=== PATIENT | male | born 1980 | race African-American/Black ===

== ENCOUNTER 2022-08-20 15:08 | Inpatient (IN) ==
[2022-08-20] MEDS ORDERED: ASPIRIN CHEW 324 MG ONE (16:02)
[2022-08-20] MEDS ORDERED: MoRPHine SULFATE 2 MG/ML CARP IV STA (16:08)
[2022-08-20] MEDS ORDERED: ONDANSETRON INJ 2 MG/ML 2 ML VIAL ONE (16:09)
[2022-08-20 16:14] LABS: Base Excess VBG 5.4 mEq/L; HCO3 VBG 30 mmol/L; Oxygen Saturation VBG 90.7 %; PCO2 VBG 42 mmHg (38-50); PO2 VBG 60 mmHg; pH VBG 7.46 (7.36-7.41)
[2022-08-20 16:20] LABS: iSTAT Creatinine 0.8 mg/dl (0.6-1.3); iSTAT Hemoglobin 14.6 g/dl (14.0-18.0); iSTAT Ionized Calcium 1.08 mmol/l (1.12-1.32); iSTAT Potassium 4.1 mmol/L (3.3-5.0)
[2022-08-20] MEDS ORDERED: HEPARIN (PORCINE) 1000 UNIT/ML 10 ML (CATH LAB USE ONLY) ONE (16:21)
[2022-08-20] MEDS ORDERED: MIDAZOLAM HCL 1 MG/ML 2ML VIAL ONE (16:21)
[2022-08-20] MEDS ORDERED: niCARdipine HCL INJ 2.5 MG/ML 10 ML AMP ONE (16:21)
[2022-08-20] MEDS ORDERED: fentaNYL citrate PF 100 MCG/2 ML VIAL ONE (16:22)
[2022-08-20] MEDS ORDERED: NITROGLYCERIN/D5W 100MCG/ML 20ML SYR ONE (16:23)
[2022-08-20 16:28] LABS: Basophils # (auto) 0.03 K/uL (0-0.2); Basophils % (auto) 0.3 %; Eosinophils # (auto) 0.06 K/uL (0-0.50); Eosinophils % (auto) 0.6 %; Hematocrit (blood only) 40.2 % (42.0-52.0); Hemoglobin 13.6 g/dl (14.0-18.0); Immature Granulocytes # (auto) 0.03 K/uL (0.01-0.20); Immature Granulocytes % (auto) 0.3 %; Lymphocytes # (auto) 1.88 K/uL (1.2-3.4); Mean Corpuscular Hemoglobin 28.6 pg (25.0-34.0); Mean Corpuscular Hgb Conc 33.8 g/dL (32.0-36.0); Mean Corpuscular Volume 84.6 fL (80.0-100.0); Mean Platelet Volume 11.4 fL (9.4-12.4); Monocytes # (auto) 0.86 K/uL (0.11-0.59); Monocytes % (auto) 8.7 %; Neutrophils # (auto) 7.03 K/uL (1.40-6.50); Neutrophils % (auto) 71.1 %; Platelet Count 218 K/uL (130-400); RDW Coefficient of Variation 13.9 % (11.5-14.5); RDW Standard Deviation 43.1 fL (36.4-46.3); Red Blood Count 4.75 M/uL (4.70-6.10); White Blood Count 9.89 K/ul (4.8-10.8)
--- NOTE | 2022-08-20 16:35 | XRay Report ---
SINGLE VIEW CHEST CLINICAL HISTORY: Atypical chest pain. Dyspnea FINDINGS: An AP, portable, upright chest radiograph is compared to chest x-ray and chest CT dated 08/19. The examination is degraded by portable technique and patient rotation. The patient is status post midline sternotomy. The heart is enlarged. There is prominence of the pulmonary vasculature. The re is elevation of the right hemidiaphragm bibasilar atelectasis. No large pleural effusion or pneumo thorax is seen. The skeletal structures appear osteopenic. The bony thorax is grossly intact. There i s scoliosis of the spine. IMPRESSION: 1. Cardiomegaly with prominence of the pulmonary vasculature. Correlate clinically for evidence of mi ld fluid overload/congestive change. 2. No airspace consolidation or large pleural effusion is identified. ACT 112: Negative or not required by law. Electronically signed by: Adelfo Knowles M.D. 08/20/2022 4:33 PM
[2022-08-20 16:36] LABS: Albumin Globulin Ratio 1.7 (0.9-2); Albumin Level 4.4 gm/dl (3.4-5.0); BUN Creatinine Ratio 12.4 (10-20); Bilirubin,Total 0.5 mg/dl (0.2-1.0); Calcium 9.4 mg/dl (8.6-10.3); Creatinine Clr Calc Pharmacy 162.1 ml/min; Est GFR (African American) 122.2 ml/min; Est GFR (Non-African American) 105.5 ml/min; Globulin 2.6 gm/dl (2.5-4.0); Magnesium 1.8 mg/dl (1.7-2.4); Potassium 4.1 mmol/L (3.5-5.1)
[2022-08-20 16:42] LABS: Troponin I High Sensitivity 4.2 pg/ml (0-20)
[2022-08-20 16:51] LABS: INR 1.3 (0.9-1.1); Partial Thromboplastin Ratio 1.1; Prothrombin Time 14.3 Seconds (9.0-12.0)
[2022-08-20] MEDS ORDERED: KETOROLAC TROMETHAMINE 15 MG/ML VIAL IV STA (16:54)
--- NOTE | 2022-08-20 17:22 | Cardiology Consultation ---
Date of Consultation August 20, 2022 Assessment & Plan (1) Chest pain: 2. Acute pericarditis 3. Small pericardial effusion without tamponade 4. Post ascending aortic aneurysm repair/mechanical mitral valve replacement Heart alert activated due to concern for possible acute WA. ECG on my review most consistent with pericarditis. In addition previously had normal cath 6 months ago, HS TropI remains negative despite more than a day of symptoms and bedside echocardiogram shows normal wall motion with small pericardial effusion. No echocardiographic/clinical signs of tamponade. Discussed with Dr. Eugene in ED. No need for cardiac catheterization at this time. Plan to treat for acute pericarditis. Recommend admission to telemetry. Check ESR/CRP, trend troponin, formal echocardiogram in the a.m. Start high-dose NSAIDs as well as colchicine 0.6 mg twice daily. On long-term warfarin. Start PPI. Dr. Connors's team to resume care tomorrow. History of Present Illness History of Present Illness Mr. Hollins is a very pleasant 41-year-old man seen emergently in the ED due to concern for possible WA. Patient follows with [facility] cardiology, Dr. Connors. He has a history of suspected Marfan's complicated by ascending aortic aneurysm post aortic root/ascending aorta replacement (27 mm On-X conduit) and mechanical aortic valve 03/19/2022. Other history markable for symptomatic PACs, history of DVT GERD and type 2 diabetes. Prevalve replacement cardiac cath showed normal coronary arteries. Patient states that for the last 3 days or so has noticed increased shortness of breath and positional, pleuritic left-sided chest pain. Presented to ED at 1 AM 08/19/2022 with chest symptoms. ECG unremarkable, HS TropI negative. Underwent chest CTA which was negative for PE, no evidence of aortic dissection and showed small pericardial effusion which was smaller in size from prior study 03/2022. Discharged home. Returns today with worsening shortness of breath. On serial ECGs was noted to have questionable prominent inferior ST elevation and heart alert was activated. On my review ECGs show more prominent inferior ST elevation but convex with CT depression and CT elevation in aVR. HS TropI again normal. Denies any fevers/chills, no rashes, joint pain or sick contacts. Family history: Father had an WA in his 50s Prior cardiac studies: 03/11/2022 underwent cardiac cath which showed angiographically normal coronary arteries. Last echo 05/02/2022 showed moderate LVH, normal RV, well-functioning mechanical aortic valve with no significant AI. Normal aortic root and proximal ascending aorta. Allergies Allergy/AdvReac Type Severity Reaction Status Date / Time dog dander Allergy Unknown ON [facility] MED Verified 08/20/22 16:05 LIST Home Medications Medication Instructions Recorded Confirmed Type acetaminophen 500 mg tablet 500 mg PO Q6H PRN Pain 04/10/22 08/20/22 History aspirin 81 mg chewable tablet 81 mg PO QAM 04/10/22 08/20/22 History furosemide 40 mg tablet 40 mg PO QAM 04/10/22 08/20/22 History potassium chloride 20 mEq 20 meq PO QAM 04/10/22 08/20/22 History tablet,extended release(part/cryst) (Klor-Con M) warfarin 5 mg tablet 5 mg PO UD 04/10/22 08/20/22 History amoxicillin 500 mg capsule 2,000 mg PO DIRECTED PRN 1 HR 08/20/22 08/20/22 History PRIOR TO DENTAL PROCEDURES losartan 25 mg tablet 12.5 mg PO QAM 08/20/22 08/20/22 History metformin 500 mg tablet,extended 500 mg PO QAM 08/20/22 08/20/22 History release 24 hr metoprolol succinate 100 mg 100 mg PO BID 08/20/22 08/20/22 History tablet,extended release 24 hr Patient History Medical History History of DVT (deep vein thrombosis) Surgical History (Updated 08/19/22 @ 07:16 by Tyra Springer PA-C) H/O aortic valve replacement with tissue graft No significant past surgical history Social History Smoking Status: Never smoker Tobacco Type: Cigarettes Hx Alcohol Use: Yes Hx Substance Use: No Preferred Language: Austrian 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 Feels Safe at Home: Yes Review of Systems Review of Systems: All systems reviewed & are unremarkable except as noted in HPI & below Physical Exam Physical Exam: General: Uncomfortable, tachypneic HEENT: Sclerae anicteric Lungs: Clear to auscultation bilaterally Cardiac: Tachycardic, regular, crisp mechanical aortic valve closure Vascular: 2+ radial Abdomen: Soft, nontender Extremities: Well perfused, no peripheral edema Neuro: Nonfocal Psych: Alert orient x3, normal affect and mood Results & Data Vital Signs (Past 12 Hours) Vital Signs Temp Pulse Pulse Resp BP BP Pulse Ox 08/20/22 16:43 08/20/22 16:35 107 H 28 H 96 08/20/22 16:30 106 H 20 94 08/20/22 16:30 158/131 H 08/20/22 16:25 107 H 23 96 08/20/22 16:20 104 H 15 94 08/20/22 16:20 140/86 08/20/22 16:18 107 H 18 137/87 95 08/20/22 16:15 109 H 21 95 08/20/22 16:11 109 H 30 H 94 08/20/22 16:11 137/92 08/20/22 16:10 112 H 25 H 94 08/20/22 16:15 108 H 08/20/22 16:05 113 H 25 H 93 08/20/22 16:03 113 H 20 94 08/20/22 16:12 08/20/22 16:11 109 H 33 H 137/92 95 08/20/22 15:11 98.8 F 104 H 20 142/100 H 96 O2 Del Method O2 Flow Rate 08/20/22 16:43 Nasal Cannula 08/20/22 16:35 2 08/20/22 16:30 2 08/20/22 16:30 08/20/22 16:25 2 08/20/22 16:20 Nasal Cannula 2 08/20/22 16:20 08/20/22 16:18 Room Air 08/20/22 16:15 Nasal Cannula 2 08/20/22 16:11 Nasal Cannula 2 08/20/22 16:11 08/20/22 16:10 Nasal Cannula 2 08/20/22 16:15 08/20/22 16:05 Room Air 08/20/22 16:03 Room Air 08/20/22 16:12 Nasal Cannula 2 08/20/22 16:11 Nasal Cannula 2 08/20/22 15:11 Room Air PG Care Time/CCT Total # of Minutes Spent Total Time Spent with Patient: Total time spent is greater than 50% in coordination of care (as documented) at patient's floor/unit and/or counseling patient: Coding Level of Care Code 07742 OFFICE CONSULT LVL Diagnoses Chest pain R07.9
[2022-08-20 17:24] LABS: C Reactive Protein 5.3 mg/dl (0-0.5)
--- NOTE | 2022-08-20 17:46 | Emergency Department Note ---
History of Present Illness General Chief Complaint: Shortness of Breath/Dyspnea Stated Complaint: DIFFICULTY BREATHING Time Seen by Provider: 08/20/22 15:28 History of Present Illness Provider Complaint: shortness of breath and chest pain Onset (ago): day(s) (2) Severity: moderate Consistency/Duration: + progressively worsening Maximum Pain Intensity: 4 Relieved By: + other (leaning forward) Exacerbated By: + lying flat Known history of: DVT Associated symptoms: + chest pain, + pain with inspiration and + chest congestion; no fever, no cough, no wheezing, no sputum production, no orthopnea, no lower extremity pain, no polyuria, no paresthesias, no hemoptysis, no nausea/vomiting or no abdominal pain Home Medications Medication Instructions Recorded Confirmed Type acetaminophen 500 mg tablet 500 mg PO Q6H PRN Pain 04/10/22 08/20/22 History aspirin 81 mg chewable tablet 81 mg PO QAM 04/10/22 08/20/22 History furosemide 40 mg tablet 40 mg PO QAM 04/10/22 08/20/22 History potassium chloride 20 mEq 20 meq PO QAM 04/10/22 08/20/22 History tablet,extended release(part/cryst) (Klor-Con M) warfarin 5 mg tablet 5 mg PO UD 04/10/22 08/20/22 History amoxicillin 500 mg capsule 2,000 mg PO DIRECTED PRN 1 HR 08/20/22 08/20/22 History PRIOR TO DENTAL PROCEDURES losartan 25 mg tablet 12.5 mg PO QAM 08/20/22 08/20/22 History metformin 500 mg tablet,extended 500 mg PO QAM 08/20/22 08/20/22 History release 24 hr metoprolol succinate 100 mg 100 mg PO BID 08/20/22 08/20/22 History tablet,extended release 24 hr Allergies Allergy/AdvReac Type Severity Reaction Status Date / Time dog dander Allergy Unknown ON [facility] MED Verified 08/20/22 16:05 LIST Past Med/Surg History Medical History History of DVT (deep vein thrombosis) No pertinent family history Surgical History H/O aortic valve replacement with tissue graft No significant past surgical history Social History Smoking Status: Never smoker Tobacco Type: Cigarettes Hx Alcohol Use: Yes Hx Substance Use: No Preferred Language: Turkmen 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 Feels Safe at Home: Yes Physical Exam Vital Signs: Vital Signs - 24 hr 08/20/22 15:11 08/20/22 16:11 08/20/22 16:12 Temperature 37.1 C Temperature Source Temporal Artery Sc an Pulse Rate 104 H Pulse Rate [Apical ] 109 H Pulse Rate from Sp O2 Sensor Respiratory Rate 20 33 H Respiratory Effort / Characteristics Non-Labored Respiratory Depth Normal Respiratory Patter n Regular Blood Pressure 142/100 H Blood Pressure [Ri ght Arm] 137/92 Blood Pressure Rahel n 114 Blood Pressure Rahel n [Right Arm] 107 Blood Pressure Pos ition Sitting Pulse Oximetry 96 95 Oxygen Delivery Me thod Room Air Nasal Cannula Nasal Cannula Oxygen Flow Rate 2 2 Sepsis Recent Feve r Within 48 Hours No Sepsis New/Unexpla ined Change in Men yasmine Status No Sepsis Action Take n by Nursing No Action Required Oxygen Flow Rate - Titration Pulse Oximetry Pos t Tiitration 08/20/22 16:03 08/20/22 16:05 08/20/22 16:15 Temperature Temperature Source Pulse Rate 113 H 113 H 108 H Pulse Rate [Apical ] Pulse Rate from Sp O2 Sensor 114 H 112 H Respiratory Rate 20 25 H Respiratory Effort / Characteristics Respiratory Depth Respiratory Patter n Blood Pressure Blood Pressure [Ri ght Arm] Blood Pressure Rahel n Blood Pressure Rahel n [Right Arm] Blood Pressure Pos ition Pulse Oximetry 94 93 Oxygen Delivery Me thod Room Air Room Air Oxygen Flow Rate Sepsis Recent Feve r Within 48 Hours Sepsis New/Unexpla ined Change in Men yasmine Status Sepsis Action Take n by Nursing Oxygen Flow Rate - Titration Pulse Oximetry Pos t Tiitration 08/20/22 16:10 08/20/22 16:11 08/20/22 16:11 Temperature Temperature Source Pulse Rate 112 H 109 H Pulse Rate [Apical ] Pulse Rate from Sp O2 Sensor 113 H 110 H Respiratory Rate 25 H 30 H Respiratory Effort / Characteristics Respiratory Depth Respiratory Patter n Blood Pressure 137/92 Blood Pressure [Ri ght Arm] Blood Pressure Rahel n 107 Blood Pressure Rahel n [Right Arm] Blood Pressure Pos ition Pulse Oximetry 94 94 Oxygen Delivery Me thod Nasal Cannula Nasal Cannula Oxygen Flow Rate 2 2 Sepsis Recent Feve r Within 48 Hours Sepsis New/Unexpla ined Change in Men yasmine Status Sepsis Action Take n by Nursing Oxygen Flow Rate - Titration Pulse Oximetry Pos t Tiitration 08/20/22 16:15 08/20/22 16:18 08/20/22 16:20 Temperature Temperature Source Pulse Rate 109 H Pulse Rate [Apical ] 107 H Pulse Rate from Sp O2 Sensor 109 H Respiratory Rate 21 18 Respiratory Effort / Characteristics Respiratory Depth Respiratory Patter n Blood Pressure 140/86 Blood Pressure [Ri ght Arm] 137/87 Blood Pressure Rahel n 104 Blood Pressure Rahel n [Right Arm] 103 Blood Pressure Pos ition Pulse Oximetry 95 95 Oxygen Delivery Me thod Nasal Cannula Room Air Oxygen Flow Rate 2 Sepsis Recent Feve r Within 48 Hours Sepsis New/Unexpla ined Change in Men yasmine Status Sepsis Action Take n by Nursing Oxygen Flow Rate - Titration Pulse Oximetry Pos t Tiitration 08/20/22 16:20 08/20/22 16:25 08/20/22 16:30 Temperature Temperature Source Pulse Rate 104 H 107 H Pulse Rate [Apical ] Pulse Rate from Sp O2 Sensor 102 H 107 H Respiratory Rate 15 23 Respiratory Effort / Characteristics Respiratory Depth Respiratory Patter n Blood Pressure 158/131 H Blood Pressure [Ri ght Arm] Blood Pressure Rahel n 140 Blood Pressure Rahel n [Right Arm] Blood Pressure Pos ition Pulse Oximetry 94 96 Oxygen Delivery Me thod Nasal Cannula Oxygen Flow Rate 2 2 Sepsis Recent Feve r Within 48 Hours Sepsis New/Unexpla ined Change in Men yasmine Status Sepsis Action Take n by Nursing Oxygen Flow Rate - Titration Pulse Oximetry Pos t Tiitration 08/20/22 16:30 08/20/22 16:35 08/20/22 16:43 Temperature Temperature Source Pulse Rate 106 H 107 H Pulse Rate [Apical ] Pulse Rate from Sp O2 Sensor 102 H 106 H Respiratory Rate 20 28 H Respiratory Effort / Characteristics Respiratory Depth Respiratory Patter n Blood Pressure Blood Pressure [Ri ght Arm] Blood Pressure Rahel n Blood Pressure Rahel n [Right Arm] Blood Pressure Pos ition Pulse Oximetry 94 96 Oxygen Delivery Me thod Nasal Cannula Oxygen Flow Rate 2 2 Sepsis Recent Feve r Within 48 Hours Sepsis New/Unexpla ined Change in Men yasmine Status Sepsis Action Take n by Nursing Oxygen Flow Rate - Titration Pulse Oximetry Pos t Tiitration 08/20/22 17:08 08/20/22 16:39 08/20/22 16:39 Temperature Temperature Source Pulse Rate 107 H Pulse Rate [Apical ] Pulse Rate from Sp O2 Sensor 106 H Respiratory Rate 20 Respiratory Effort / Characteristics Respiratory Depth Respiratory Patter n Blood Pressure 149/92 H Blood Pressure [Ri ght Arm] Blood Pressure Rahel n 111 Blood Pressure Rahel n [Right Arm] Blood Pressure Pos ition Pulse Oximetry 89 L 96 Oxygen Delivery Me thod Nasal Cannula Nasal Cannula Oxygen Flow Rate 0 2 Sepsis Recent Feve r Within 48 Hours Sepsis New/Unexpla ined Change in Men yasmine Status Sepsis Action Take n by Nursing Oxygen Flow Rate - Titration 2 Pulse Oximetry Pos t Tiitration 95 08/20/22 16:40 08/20/22 17:07 08/20/22 17:07 Temperature Temperature Source Pulse Rate 107 H 110 H Pulse Rate [Apical ] Pulse Rate from Sp O2 Sensor Respiratory Rate 25 H 17 Respiratory Effort / Characteristics Respiratory Depth Respiratory Patter n Blood Pressure 142/86 H Blood Pressure [Ri ght Arm] Blood Pressure Rahel n 104 Blood Pressure Rahel n [Right Arm] Blood Pressure Pos ition Pulse Oximetry Oxygen Delivery Me thod Oxygen Flow Rate Sepsis Recent Feve r Within 48 Hours Sepsis New/Unexpla ined Change in Men yasmine Status Sepsis Action Take n by Nursing Oxygen Flow Rate - Titration Pulse Oximetry Pos t Tiitration 08/20/22 17:10 08/20/22 17:15 08/20/22 17:20 Temperature Temperature Source Pulse Rate 106 H 107 H 108 H Pulse Rate [Apical ] Pulse Rate from Sp O2 Sensor 107 H 108 H 108 H Respiratory Rate 23 23 27 H Respiratory Effort / Characteristics Respiratory Depth Respiratory Patter n Blood Pressure Blood Pressure [Ri ght Arm] Blood Pressure Rahel n Blood Pressure Rahel n [Right Arm] Blood Pressure Pos ition Pulse Oximetry 95 95 97 Oxygen Delivery Me thod Nasal Cannula Nasal Cannula Nasal Cannula Oxygen Flow Rate 2 2 2 Sepsis Recent Feve r Within 48 Hours Sepsis New/Unexpla ined Change in Men yasmine Status Sepsis Action Take n by Nursing Oxygen Flow Rate - Titration Pulse Oximetry Pos t Tiitration 08/20/22 17:25 08/20/22 17:30 08/20/22 17:30 Temperature Temperature Source Pulse Rate 106 H 105 H Pulse Rate [Apical ] Pulse Rate from Sp O2 Sensor 108 H 106 H Respiratory Rate 17 24 Respiratory Effort / Characteristics Respiratory Depth Respiratory Patter n Blood Pressure 131/94 Blood Pressure [Ri ght Arm] Blood Pressure Rahel n 106 Blood Pressure Rahel n [Right Arm] Blood Pressure Pos ition Pulse Oximetry 95 96 Oxygen Delivery Me thod Nasal Cannula Nasal Cannula Oxygen Flow Rate 2 2 Sepsis Recent Feve r Within 48 Hours Sepsis New/Unexpla ined Change in Men yasmine Status Sepsis Action Take n by Nursing Oxygen Flow Rate - Titration Pulse Oximetry Pos t Tiitration Physical Exam: Physical Exam HENT: Exam performed. - Head: Normocephalic and atraumatic. EYES: Conjunctivae and EOM are normal. Right eye exhibits no discharge. Left eye exhibits no discharge. No scleral icterus. NECK: Normal range of motion. Neck supple. No JVD present. CV: Normal rate, regular rhythm, normal heart sounds and intact distal pulses. There is no peripheral edema. Palpable radial pulses bue. PULM/CHEST: Tachypneic. No respiratory distress. No stridor. no wheezes. no rales. ABD: The abdomen is soft. There is no tenderness. NEURO: Motor and sensation grossly intact. SKIN: Skin is warm and dry. He is not diaphoretic. PSYCH: normal mood and affect. Behavior is normal. Judgment and thought content normal. Course Course 1528: The patient was evaluated in room A12. A complete history and physical exam was performed Cardiac monitoring: An order was placed for continuous cardiac monitoring. The monitor shows a rate of 100 with sinus rhythm interpreted by me 1559: Heart alert called. EKG when compared to EKG done last night does show some more ST elevation in leads II, III and aVF. Heart alert called. Bedside [id number] ultrasound done by me shows a small pericardial effusion with no pericardial tamponade. 1647: Patient was evaluated by Dr. Fu at bedside. He states he after discussing with the patient and reviewing patient's EKGs and lab work, he thinks that the patient less likely has ACS given the repeat negative high-sensitivity troponin. He states that he thinks that the patient has pericarditis. He johnie mmends treatment with NSAIDs, check a Lyme's, and echo in the a.m. He recommends serial troponins. 1706: Patient had been moved to the Gym Supervisor it was removed back to his room and a 12 as no emergent cardiac intervention is planned at this time. Administered Medications Discontinued Medications Aspirin (Aspirin Chew 324 Mg) Confirm Administered Dose 324 mg .ROUTE .STK-MED ONE Stop: 08/20/22 16:03 Last Admin: 08/20/22 16:02 Dose: 324 mg Documented By: NATHALIE Fentanyl Citrate (Fentanyl Citrate Pf 100 Mcg/2 Ml Vial) Confirm Administered Dose 100 mcg .ROUTE .STK-MED ONE Stop: 08/20/22 16:23 Last Admin: 08/20/22 17:32 Dose: Not Given Documented By: NATHALIE Heparin Sodium (Porcine) (Heparin (Porcine) 1000 Unit/Ml 10 Ml (Gym Supervisor Use Only)) Confirm Administered Dose 10,000 units .ROUTE .STK-MED ONE Stop: 08/20/22 16:22 Last Admin: 08/20/22 17:32 Dose: Not Given Documented By: NATHALIE Heparin Sodium/Sodium Chloride (Heparin In Nss Infusion 1000 Unit/500 Ml (2 U/Ml) Bag) Confirm Administered Dose 4,000 units IV .STK-MED ONE Stop: 08/20/22 16:24 Last Admin: 08/20/22 17:32 Dose: Not Given Documented By: NATHALIE Ketorolac Tromethamine (Ketorolac Tromethamine 15 Mg/Ml Vial) 15 mg IV NOW STA Stop: 08/20/22 16:55 Last Admin: 08/20/22 17:26 Dose: 15 mg Documented By: NATHALIE Midazolam HCl (Midazolam Hcl 1 Mg/Ml 2ml Vial) Confirm Administered Dose 2 mg .ROUTE .STK-MED ONE Stop: 08/20/22 16:22 Last Admin: 08/20/22 17:32 Dose: Not Given Documented By: NATHALIE Morphine Sulfate (Morphine Sulfate 2 Mg/Ml Carp) 2 mg IV NOW STA Stop: 08/20/22 16:09 Last Admin: 08/20/22 16:11 Dose: 2 mg Documented By: SONNY Nicardipine HCl (Nicardipine Hcl Inj 2.5 Mg/Ml 10 Ml Amp) Confirm Administered Dose 25 mg .ROUTE .STK-MED ONE Stop: 08/20/22 16:22 Last Admin: 08/20/22 17:32 Dose: Not Given Documented By: NATHALIE Nitroglycerin/Dextrose (Nitroglycerin/D5w 100mcg/Ml 20ml Syr) Confirm Administered Dose 2,000 mcg .ROUTE .STK-MED ONE Stop: 08/20/22 16:24 Last Admin: 08/20/22 17:32 Dose: Not Given Documented By: NATHALIE Ondansetron HCl (Ondansetron Inj 2 Mg/Ml 2 Ml Vial) Confirm Administered Dose 4 mg .ROUTE .[facility]-MED ONE Stop: 08/20/22 16:10 Last Admin: 08/20/22 16:11 Dose: 4 mg Documented By: SONNY Medical Decision Making Medical Records Attestation: I reviewed the patient's medical records. External medical records were reviewed. Patient was seen in the emergency department 24 hours ago. At that time the patient had blood work done which was negative including a negative high-sensitivity troponin. The patient's INR was 2.4. CTA of the chest was conducted at that time which showed no evidence of pulmonary embolus and small pericardial effusion and no evidence of an aortic dissection. Laboratory Data Attestation: I reviewed the patient's lab results. 08/20/22 16:02 08/20/22 16:02 Lab Results 08/20/22 08/20/22 08/20/22 Range/Units 15:55 15:55 16:02 WBC 9.89 (4.8-10.8) K/ul RBC 4.75 (4.70-6.10) M/uL Hgb 13.6 L (14.0-18.0) g/dl POC Hgb (14.0-18.0) g/dl Hct 40.2 L (42.0-52.0) % POC Hct (42-52) % MCV 84.6 (80.0-100.0) fL MCH 28.6 (25.0-34.0) pg MCHC 33.8 (32.0-36.0) g/dL RDW Std Deviation 43.1 (36.4-46.3) fL RDW Coeff of Syeda 13.9 (11.5-14.5) % Plt Count 218 (130-400) K/uL MPV 11.4 (9.4-12.4) fL Immature Gran % (Auto) 0.3 % Neut % (Auto) 71.1 % Lymph % (Auto) 19.0 % [place] % (Auto) 8.7 % Eos % (Auto) 0.6 % Baso % (Auto) 0.3 % Neut # (Auto) 7.03 H (1.40-6.50) K/uL Lymph # (Auto) 1.88 (1.2-3.4) K/uL [place] # (Auto) 0.86 H (0.11-0.59) K/uL Eos # (Auto) 0.06 (0-0.50) K/uL Baso # (Auto) 0.03 (0-0.2) K/uL Immature Gran # (Auto) 0.03 (0.01-0.20) K/uL PT (9.0-12.0) Seconds INR (0.9-1.1) APTT (21.0-31.0) Seconds PTT Ratio VBG pH (7.36-7.41) VBG pCO2 (38-50) mmHg VBG pO2 mmHg VBG HCO3 mmol/L VBG O2 Saturation % VBG Base Excess mEq/L POC Sodium (135-144) mmol/L Sodium (136-145) mmol/L POC Potassium (3.3-5.0) mmol/L Potassium (3.5-5.1) mmol/L POC Chloride (101-112) mmol/L Chloride (98-107) mmol/L Carbon Dioxide (21-32) mmol/L POC Total CO2 (24-31) mmol/L Anion Gap (3-11) POC Anion Gap (16-25) mmol/L POC BUN (7-18) mg/dl BUN (6-23) mg/dl Creatinine (0.6-1.4) mg/dl POC Creatinine (0.6-1.3) mg/dl Est Cr Clr Drug Dosing ml/min Est GFR ( Amer) ml/min Est GFR (Non-Af Amer) ml/min BUN/Creatinine Ratio (10-20) Glucose (70-99(Fasting)) mg/dl POC Glucose (other) (70-99) mg/dl Calcium (8.6-10.3) mg/dl POC Ioniz Calcium Melanie (1.12-1.32) mmol/l Magnesium (1.7-2.4) mg/dl Total Bilirubin (0.2-1.0) mg/dl AST (13-39) U/L ALT (7-52) U/L Alkaline Phosphatase (34-104) U/L Total Creatine Kinase (30-223) U/L Troponin I High Sens (0-20) pg/ml C-Reactive Protein (0-0.5) mg/dl B-Natriuretic Peptide 28 (0-100) pg/ml Total Protein (6.0-8.3) gm/dl Albumin (3.4-5.0) gm/dl Globulin (2.5-4.0) gm/dl Albumin/Globulin Ratio (0.9-2) Lipase (11-82) U/L TSH 1.354 (0.300-4.500) uIu/ml SARS-CoV-2, RNA, NAAT (NEGATIVE) 08/20/22 08/20/22 08/20/22 Range/Units 16:02 16:02 16:02 WBC (4.8-10.8) K/ul RBC (4.70-6.10) M/uL Hgb (14.0-18.0) g/dl POC Hgb (14.0-18.0) g/dl Hct (42.0-52.0) % POC Hct (42-52) % MCV (80.0-100.0) fL MCH (25.0-34.0) pg MCHC (32.0-36.0) g/dL RDW Std Deviation (36.4-46.3) fL RDW Coeff of Syeda (11.5-14.5) % Plt Count (130-400) K/uL MPV (9.4-12.4) fL Immature Gran % (Auto) % Neut % (Auto) % Lymph % (Auto) % [place] % (Auto) % Eos % (Auto) % Baso % (Auto) % Neut # (Auto) (1.40-6.50) K/uL Lymph # (Auto) (1.2-3.4) K/uL [place] # (Auto) (0.11-0.59) K/uL Eos # (Auto) (0-0.50) K/uL Baso # (Auto) (0-0.2) K/uL Immature Gran # (Auto) (0.01-0.20) K/uL PT 14.3 H (9.0-12.0) Seconds INR 1.3 H (0.9-1.1) APTT 31.0 (21.0-31.0) Seconds PTT Ratio 1.1 VBG pH 7.46 H (7.36-7.41) VBG pCO2 42 (38-50) mmHg VBG pO2 60 mmHg VBG HCO3 30 mmol/L VBG O2 Saturation 90.7 % VBG Base Excess 5.4 mEq/L POC Sodium (135-144) mmol/L Sodium 135 L (136-145) mmol/L POC Potassium (3.3-5.0) mmol/L Potassium 4.1 (3.5-5.1) mmol/L POC Chloride (101-112) mmol/L Chloride 101 (98-107) mmol/L Carbon Dioxide 29 (21-32) mmol/L POC Total CO2 (24-31) mmol/L Anion Gap 5 (3-11) POC Anion Gap (16-25) mmol/L POC BUN (7-18) mg/dl BUN 11 (6-23) mg/dl Creatinine 0.89 (0.6-1.4) mg/dl POC Creatinine (0.6-1.3) mg/dl Est Cr Clr Drug Dosing 162.1 ml/min Est GFR ( Amer) 122.2 ml/min Est GFR (Non-Af Amer) 105.5 ml/min BUN/Creatinine Ratio 12.4 (10-20) Glucose 133 H (70-99(Fasting)) mg/dl POC Glucose (other) (70-99) mg/dl Calcium 9.4 (8.6-10.3) mg/dl POC Ioniz Calcium Melanie (1.12-1.32) mmol/l Magnesium 1.8 (1.7-2.4) mg/dl Total Bilirubin 0.5 (0.2-1.0) mg/dl AST 18 (13-39) U/L ALT 21 (7-52) U/L Alkaline Phosphatase 54 (34-104) U/L Total Creatine Kinase 214 (30-223) U/L Troponin I High Sens 4.2 (0-20) pg/ml C-Reactive Protein 5.30 H (0-0.5) mg/dl B-Natriuretic Peptide (0-100) pg/ml Total Protein 7.0 (6.0-8.3) gm/dl Albumin 4.4 (3.4-5.0) gm/dl Globulin 2.6 (2.5-4.0) gm/dl Albumin/Globulin Ratio 1.7 (0.9-2) Lipase 15 (11-82) U/L TSH (0.300-4.500) uIu/ml SARS-CoV-2, RNA, NAAT (NEGATIVE) 08/20/22 08/20/22 Range/Units 16:07 16:17 WBC (4.8-10.8) K/ul RBC (4.70-6.10) M/uL Hgb (14.0-18.0) g/dl POC Hgb 14.6 (14.0-18.0) g/dl Hct (42.0-52.0) % POC Hct 43 (42-52) % MCV (80.0-100.0) fL MCH (25.0-34.0) pg MCHC (32.0-36.0) g/dL RDW Std Deviation (36.4-46.3) fL RDW Coeff of Syeda (11.5-14.5) % Plt Count (130-400) K/uL MPV (9.4-12.4) fL Immature Gran % (Auto) % Neut % (Auto) % Lymph % (Auto) % [place] % (Auto) % Eos % (Auto) % Baso % (Auto) % Neut # (Auto) (1.40-6.50) K/uL Lymph # (Auto) (1.2-3.4) K/uL [place] # (Auto) (0.11-0.59) K/uL Eos # (Auto) (0-0.50) K/uL Baso # (Auto) (0-0.2) K/uL Immature Gran # (Auto) (0.01-0.20) K/uL PT (9.0-12.0) Seconds INR (0.9-1.1) APTT (21.0-31.0) Seconds PTT Ratio VBG pH (7.36-7.41) VBG pCO2 (38-50) mmHg VBG pO2 mmHg VBG HCO3 mmol/L VBG O2 Saturation % VBG Base Excess mEq/L POC Sodium 136 (135-144) mmol/L Sodium (136-145) mmol/L POC Potassium 4.1 (3.3-5.0) mmol/L Potassium (3.5-5.1) mmol/L POC Chloride 98 L (101-112) mmol/L Chloride (98-107) mmol/L Carbon Dioxide (21-32) mmol/L POC Total CO2 28 (24-31) mmol/L Anion Gap (3-11) POC Anion Gap 15.0 L (16-25) mmol/L POC BUN 8 (7-18) mg/dl BUN (6-23) mg/dl Creatinine (0.6-1.4) mg/dl POC Creatinine 0.8 (0.6-1.3) mg/dl Est Cr Clr Drug Dosing ml/min Est GFR ( Amer) ml/min Est GFR (Non-Af Amer) ml/min BUN/Creatinine Ratio (10-20) Glucose (70-99(Fasting)) mg/dl POC Glucose (other) 132 H (70-99) mg/dl Calcium (8.6-10.3) mg/dl POC Ioniz Calcium Melanie 1.08 L (1.12-1.32) mmol/l Magnesium (1.7-2.4) mg/dl Total Bilirubin (0.2-1.0) mg/dl AST (13-39) U/L ALT (7-52) U/L Alkaline Phosphatase (34-104) U/L Total Creatine Kinase (30-223) U/L Troponin I High Sens (0-20) pg/ml C-Reactive Protein (0-0.5) mg/dl B-Natriuretic Peptide (0-100) pg/ml Total Protein (6.0-8.3) gm/dl Albumin (3.4-5.0) gm/dl Globulin (2.5-4.0) gm/dl Albumin/Globulin Ratio (0.9-2) Lipase (11-82) U/L TSH (0.300-4.500) uIu/ml SARS-CoV-2, RNA, NAAT NEGATIVE (NEGATIVE) Imaging Data Attestation: I personally reviewed and interpreted this imaging study as follows: My Impression: Chest x-ray negative. Airway clear. No pneumothorax. No consolidation. No cardiomegaly or cephalization.. No free air under the diaphragm. No fractures of the skeletal structures. Radiologist's Impression: Chest X-Ray 08/20/22 15:29 SINGLE VIEW CHEST CLINICAL HISTORY: Atypical chest pain. Dyspnea FINDINGS: An AP, portable, upright chest radiograph is compared to chest x-ray and chest CT dated 08/19/2022. The examination is degraded by portable technique and patient rotation. The patient is status post midline sternotomy. The heart is enlarged. There is prominence of the pulmonary vasculature. There is elevation of the right hemidiaphragm bibasilar atelectasis. No large pleural effusion or pneumothorax is seen. The skeletal structures appear osteopenic. The bony thorax is grossly intact. There is scoliosis of the spine. IMPRESSION: 1. Cardiomegaly with prominence of the pulmonary vasculature. Correlate clinically for evidence of mild fluid overload/congestive change. 2. No airspace consolidation or large pleural effusion is identified. ACT 112: Negative or not required by law. Electronically signed by: Adelfo Knowles M.D. 08/20/2022 4:33 PM ECG Data Attestation: I personally reviewed and interpreted this ECG as follows: Interpretation: EKG #1 at 1554: Sinus rhythm with a rate of 110. WI 160 QRS [address] elevation in leads II, III and aVF. This appears new compared to the EKG done on August 19, 2022. EKG #2 at 1556: Sinus tachycardia with rate 112. WI 158 QRS [address] elevation in leads II, III and aVF. EKG #3 at 1623: Sinus rhythm with a rate of 106. WI 158 QRS [address] elevation in leads II, III and aVF. Mild WI depression in leads II, III and aVF. [facility] Narrative 1528: The patient was evaluated in room A12. A complete history and physical exam was performed Cardiac monitoring: An order was placed for continuous cardiac monitoring. The monitor shows a rate of 100 with sinus rhythm interpreted by me 1559: Heart alert called. EKG when compared to EKG done last night does show some more ST elevation in leads II, III and aVF. Heart alert called. Bedside [id number] ultrasound done by me shows a small pericardial effusion with no pericardial tamponade. 1647: Patient was evaluated by Dr. Fu at bedside. He states he after discussing with the patient and reviewing patient's EKGs and lab work, he thinks that the patient less likely has ACS given the repeat negative high-sensitivity troponin. He states that he thinks that the patient has pericarditis. He recommends treatment with NSAIDs, check a Lyme's, and echo in the a.m. He recommends serial troponins. 1706: Patient had been moved to the Gym Supervisor it was removed back to his room and a 12 as no emergent cardiac intervention is planned at this time. Impression & Plan Pericarditis Discharge Plan Visit Data Chief Complaint: Shortness of Breath/Dyspnea Stated Complaint: DIFFICULTY BREATHING ED Provider: Mal Eugene Discharge Problem: Pericarditis Patient Disposition: Admitted As Inpatient Discharge Instructions Interventions: ED Discharge Assessment Last Done: 08/20/22 16:43 Forms Stand Alone Forms: [facility] Prescriptions Prescriptions: No Action amoxicillin 500 mg Capsule 2,000 mg PO DIRECTED PRN (Reason: 1 HR PRIOR TO DENTAL PROCEDURES) metoprolol succinate 100 mg tablet extended release 24 hr 100 mg PO BID losartan 25 mg tablet 12.5 mg PO QAM metformin 500 mg tablet extended release 24 hr 500 mg PO QAM furosemide 40 mg tablet 40 mg PO QAM warfarin 5 mg tablet 5 mg PO UD potassium chloride [Klor-Con M20] 20 mEq tablet,ER particles/crystals 20 meq PO QAM aspirin 81 mg tablet,chewable 81 mg PO QAM acetaminophen 500 mg Tablet 500 mg PO Q6H PRN (Reason: Pain) Referrals Referrals: Damari Mascorro PA-C [Primary Care Provider] -
[2022-08-20 18:09] LABS: Lyme Ab IgG w/WB Rflx Negative (Negative); Lyme Ab IgM w/WB Rflx Negative (Negative)
[2022-08-20] MEDS ORDERED: ALUMINUM/MAGNESIUM SUSP 30 ML UDC PO PRN (18:52)
[2022-08-20] MEDS ORDERED: POLYETHYLENE (MIRALAX) 17 GM PACK PO PRN (18:52)
[2022-08-20] MEDS ORDERED: MAGNESIUM HYDROXIDE SUSP 30 ML UDC PO PRN (18:52)
[2022-08-20] MEDS ORDERED: ONDANSETRON INJ 2 MG/ML 2 ML VIAL IV PRN (18:52)
--- NOTE | 2022-08-20 20:04 | History & Physical Report ---
Date of Service August 20, 2022 Assessment & Plan (1) Pericarditis: Plan: small pericardial effusion seen on CTA yesterday and again on bedside US today continue with scheduled NSAIDs, supportive care, additional analgesia as needed colchicine 0.6 mg bid added per cardiology recs trop I wnl 4.2, proBNP 28 monitor on telemetry for now cardiology consulted, appreciate input, will follow recs f/u TTE in am f/u tickborne serology Present on Admission?: Yes (2) H/O aortic valve replacement: Plan: continue warfarin INR subtherapeutic, pt believes from missing dose yesterday while in the ED, feels confident it will normalize on his usual regimen per pt he takes Warfarin 1 tab on Friday, 2 tabs every other day of the week, believes they are 5 mg tabs but unsure continue to monitor INR Present on Admission?: Yes (3) Chest pain: Plan: patent coronary arteries on catheterization within the past 6 months troponin wnl 2 days in a row, if pt had an ND, given the duration of symptoms would expect troponin to be elevated by now no e/o dissection, PE, or PNA on CTA and CXR done over the past two days continue as above under pericarditis Present on Admission?: Yes (4) Shortness of breath: Plan: tx as under pericarditis Present on Admission?: Yes (5) GERD without esophagitis: Plan: no complaints at this time continue PPI while on NSAID therapy Present on Admission?: Yes (6) History of DVT (deep vein thrombosis): Plan: continue warfarin as above Present on Admission?: Yes (7) Primary hypertension: Plan: continue Furosemide 40 mg daily, Losartan 12.5 mg daily, and Metoprolol 100 mg po BID pt denies any hx of HF of any type Present on Admission?: Yes (8) Diet-controlled type 2 diabetes mellitus: Plan: diabetic diet A1c 6.6 - 6.7 Present on Admission?: Yes History of Present Illness Chief Complaint: CP with SOB Primary Care Provider: Damari Mascorro PA-C Mr. Hollins is a 41 year old male with pmhx (per chart, reviewed with pt) of suspected Marfan's complicated by ascending aortic aneurysm/dilation and nonrheumatic AV insufficiency s/p aortic root/ascending aorta replacement (27 mm On-X conduit) and mechanical aortic valve (on Warfarin) 03/19/2022, symptomatic PACs, history of DVT, HTN, COPD, GERD, Lumbar DDD, and scoliosis. He presented with worsening chest pain and sob. He is found to have pericarditis. Mr. Hollins reports he has mild chronic chest discomfort and sensation that he can't get a good deep breath since surgery (noted above). Friday this became much worse than baseline. He felt as though he had just woken from surgery and couldn't get a good breath. This was associated with chest pain that is exacerbated by lying flat, lying on the side, and deep inspiration. Pain is not affected by activity. It is alleviated with medication given here and with sitting upright. He becomes fatigued and severely short of breath with minimal activity such as walking from the front door to the car. This is associated with orthopnea, paroxysmal nocturnal dyspnea, lightheadedness, sensation of chest congestion and a dry cough. He does not spend much time outdoors and is unaware of any insect bites or rash. He further denies f/c/n/v, sweats, nasal or sinus congestion, rhinorrhea, sore throat, post nasal drip, diarrhea, or dysuria. He had some pain across the upper abdomen that resolved with morphine. He presented 08/19 due to symptoms above. CTA at that time revealed a small pericardial effusion. It was neg for PE or dissection. Mutliple stable pulmonary nodules were noted. Trop was wnl and he was sent home. He did not feel any better when he got home. 08/20 symptoms worsened prompting him to return to the ED. ED course: VS: HR 100s, RR 20s, otherwise VSS, afebrile, saturating well ORA b/w: notable for normal BNP (28), and Trop I (4.2). CRP is elevated at 5.30. CBC and CMP are unimpressive/wnl. TSH, Mg, lipase all wnl Tickborn serology is pending. INR is subtherapeutic (1.3). Pt reports missing dose yesterday. CXR: unchanged from yesterday. UA neg for bacteria Bedside echo with small pericardial effusion, no tamponade. Given Ketorolac and morphine, admitted to hospitalist service. Of note pt states he does not have DM. He has metformin in case he needs it, he checks his glucose level regularly, and to this point has never actually needed the metformin. He also denies dx of HLP (no dx of HLP in EMR Link). Per OP records A1c has consistently been 6.6-6.7 indicating diet controlled NIDDM-II. OP records also note COPD Allergies Allergy/AdvReac Type Severity Reaction Status Date / Time dog dander Allergy Unknown ON [facility] Verified 08/20/22 16:05 LIST Home Medications Medication Instructions Recorded Confirmed Type acetaminophen 500 mg tablet 500 mg PO Q6H PRN Pain 04/10/22 08/20/22 History aspirin 81 mg chewable tablet 81 mg PO QAM 04/10/22 08/20/22 History furosemide 40 mg tablet 40 mg PO QAM 04/10/22 08/20/22 History potassium chloride 20 mEq 20 meq PO QAM 04/10/22 08/20/22 History tablet,extended release(part/cryst) (Klor-Con M) warfarin 5 mg tablet 5 mg PO UD 04/10/22 08/20/22 History amoxicillin 500 mg capsule 2,000 mg PO DIRECTED PRN 1 HR 08/20/22 08/20/22 History PRIOR TO DENTAL PROCEDURES losartan 25 mg tablet 12.5 mg PO QAM 08/20/22 08/20/22 History metformin 500 mg tablet,extended 500 mg PO QAM 08/20/22 08/20/22 History release 24 hr metoprolol succinate 100 mg 100 mg PO BID 08/20/22 08/20/22 History tablet,extended release 24 hr Past Med/Surg History Medical History (Updated 08/20/22 @ 20:50 by Janet Lucas MD) Diet-controlled type 2 diabetes mellitus GERD without esophagitis History of DVT (deep vein thrombosis) No pertinent family history Primary hypertension Surgical History (Updated 08/20/22 @ 20:36 by Janet Lucas MD) H/O aortic valve replacement with tissue graft Family History (Updated 08/20/22 @ 20:53 by Janet Lucas MD) Father Coronary heart disease [place] in 50s Mother , pancreatic cancer Diabetes Brother Coronary heart disease [place] age 47 Social History (Updated 08/20/22 @ 20:30 by Janet Lucas MD) Smoking Status: Former smoker Tobacco Type: Cigarettes Age Started Using Tobacco: 19; Age Quit Using Tobacco: 40; Cigarettes Per Day: Smoked intermittently, estimates 15 years.; Second Hand Exposure: No; Do You Dip or Chew Tobacco: No; Hx Alcohol Use: Yes Alcohol Intake Frequency: 2-4 x/Month Hx Substance Use: No Preferred Language: Nepali current occupational status: employed 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 + rub Pulm: CTA b/l Abd/GI: + BS, soft, NT, ND, no guarding : no britt Ext: no pretibial edema, peripheral pulses intact MSK: normal bulk and tone Neuro: alert, moving all 4 extremities symmetrically, no focal deficits. Psych: pleasant mood and affect Skin: Longitudinal midline chest scar from cardiac surgery is well healed. Visible skin is warm, dry, and without rash. Pt not fully undressed for exam. Results & Data Results & Data Vital Signs (Past 12 Hours) Vital Signs Temp Pulse Pulse Resp BP BP Pulse Ox 08/20/22 18:30 103 H 23 96 08/20/22 18:30 126/83 08/20/22 18:15 102 H 26 H 96 08/20/22 18:10 103 H 24 95 08/20/22 18:05 103 H 18 95 08/20/22 18:00 102 H 22 95 08/20/22 18:00 139/89 08/20/22 17:55 101 H 29 H 96 08/20/22 17:50 105 H 20 94 08/20/22 17:45 107 H 24 96 08/20/22 17:40 106 H 28 H 96 08/20/22 17:35 106 H 15 96 08/20/22 17:30 105 H 24 96 08/20/22 17:30 131/94 08/20/22 17:25 106 H 17 95 08/20/22 17:20 108 H 27 H 97 08/20/22 17:15 107 H 23 95 08/20/22 17:10 106 H 23 95 08/20/22 17:07 110 H 17 08/20/22 17:07 142/86 H 08/20/22 16:40 107 H 25 H 08/20/22 16:39 149/92 H 08/20/22 16:39 107 H 20 96 08/20/22 17:08 89 L 08/20/22 16:43 08/20/22 16:35 107 H 28 H 96 08/20/22 16:30 106 H 20 94 08/20/22 16:30 158/131 H 08/20/22 16:25 107 H 23 96 08/20/22 16:20 104 H 15 94 08/20/22 16:20 140/86 08/20/22 16:18 107 H 18 137/87 95 08/20/22 16:15 109 H 21 95 08/20/22 16:11 109 H 30 H 94 08/20/22 16:11 137/92 08/20/22 16:10 112 H 25 H 94 08/20/22 16:15 108 H 08/20/22 16:05 113 H 25 H 93 08/20/22 16:03 113 H 20 94 08/20/22 16:12 08/20/22 16:11 109 H 33 H 137/92 95 08/20/22 15:11 37.1 C 104 H 20 142/100 H 96 O2 Del Method O2 Flow Rate 08/20/22 18:30 Nasal Cannula 2 08/20/22 18:30 08/20/22 18:15 Nasal Cannula 2 08/20/22 18:10 Nasal Cannula 2 08/20/22 18:05 Nasal Cannula 2 08/20/22 18:00 Nasal Cannula 2 08/20/22 18:00 08/20/22 17:55 Nasal Cannula 2 08/20/22 17:50 Nasal Cannula 2 08/20/22 17:45 Nasal Cannula 2 08/20/22 17:40 Nasal Cannula 2 08/20/22 17:35 Nasal Cannula 2 08/20/22 17:30 Nasal Cannula 2 08/20/22 17:30 08/20/22 17:25 Nasal Cannula 2 08/20/22 17:20 Nasal Cannula 2 08/20/22 17:15 Nasal Cannula 2 08/20/22 17:10 Nasal Cannula 2 08/20/22 17:07 08/20/22 17:07 08/20/22 16:40 08/20/22 16:39 08/20/22 16:39 Nasal Cannula 2 08/20/22 17:08 Nasal Cannula 0 08/20/22 16:43 Nasal Cannula 08/20/22 16:35 2 08/20/22 16:30 2 08/20/22 16:30 08/20/22 16:25 2 08/20/22 16:20 Nasal Cannula 2 08/20/22 16:20 08/20/22 16:18 Room Air 08/20/22 16:15 Nasal Cannula 2 08/20/22 16:11 Nasal Cannula 2 08/20/22 16:11 08/20/22 16:10 Nasal Cannula 2 08/20/22 16:15 08/20/22 16:05 Room Air 08/20/22 16:03 Room Air 08/20/22 16:12 Nasal Cannula 2 08/20/22 16:11 Nasal Cannula 2 08/20/22 15:11 Room Air Laboratory Results Short CBC 08/20/22 Range/Units 16:02 WBC 9.89 (4.8-10.8) K/ul Hgb 13.6 L (14.0-18.0) g/dl Hct 40.2 L (42.0-52.0) % Plt Count 218 (130-400) K/uL BMP 08/20/22 16:02 Sodium 135 L Potassium 4.1 Chloride 101 Carbon Dioxide 29 BUN 11 Creatinine 0.89 Glucose 133 H Calcium 9.4 Cardiac Enzymes 08/20/22 Range/Units 16:02 Total Creatine Kinase 214 (30-223) U/L Liver Function 08/20/22 Range/Units 16:02 Total Bilirubin 0.5 (0.2-1.0) mg/dl AST 18 (13-39) U/L ALT 21 (7-52) U/L Alkaline Phosphatase 54 (34-104) U/L Albumin 4.4 (3.4-5.0) gm/dl Diagnostic Findings Chest X-Ray 08/20/22 15:29 SINGLE VIEW CHEST FINDINGS: An AP, portable, upright chest radiograph is compared to chest x-ray and chest CT dated 08/19/2022. The examination is degraded by portable technique and patient rotation. The patient is status post midline sternotomy. The heart is enlarged. There is prominence of the pulmonary vasculature. There is elevation of the right hemidiaphragm bibasilar atelectasis. No large pleural effusion or pneumothorax is seen. The skeletal structures appear osteopenic. The bony thorax is grossly intact. There is scoliosis of the spine. IMPRESSION: 1. Cardiomegaly with prominence of the pulmonary vasculature. Correlate clinically for evidence of mild fluid overload/congestive change. 2. No airspace consolidation or large pleural effusion is identified. Electronically signed by: Adelfo Knowles M.D. 08/20/2022 4:33 PM Code Status & VTE Plan Code Status Full VTE Prophylaxis Plan VTE Prophylaxis will be ordered: Yes (1) Pericarditis Chronicity: unspecified Pericarditis type: unspecified type Qualified Code(s): I31.9 - Disease of pericardium, unspecified
[2022-08-20] MEDS ORDERED: ACETAMINOPHEN 500 MG TAB PO PRN (21:25)
[2022-08-20] MEDS: WARFARIN SOD 10 MG TAB PO SCH (22:31)
[2022-08-20] MEDS: FUROSEMIDE 40 MG TAB PO SCH (22:32)
[2022-08-20] MEDS: IBUPROFEN 600 MG TAB PO SCH (22:32)
[2022-08-20] MEDS: COLCHICINE 0.6 MG TAB PO SCH (22:32)
[2022-08-20] MEDS: METOPROLOL SUCC 50MG EXT REL TAB PO SCH (22:33)
[2022-08-21] MEDS: IBUPROFEN 600 MG TAB PO SCH ×3 (06:05→22:28)
[2022-08-21 07:08] LABS: INR 1.2 (0.9-1.1); Prothrombin Time 13.5 Seconds (9.0-12.0)
[2022-08-21 07:22] LABS: BUN Creatinine Ratio 12.8 (10-20); Calcium 8.7 mg/dl (8.6-10.3); Creatinine Clr Calc Pharmacy 141.6 ml/min; Potassium 4.2 mmol/L (3.5-5.1)
[2022-08-21] MEDS: COLCHICINE 0.6 MG TAB PO SCH ×2 (09:12→20:24)
[2022-08-21] MEDS: POTASSIUM CHLORIDE CRTAB 20 MEQ TABCR PO SCH (09:12)
[2022-08-21] MEDS: METOPROLOL SUCC 50MG EXT REL TAB PO SCH ×2 (09:12→20:20)
[2022-08-21] MEDS: ASPIRIN 81 MG CHEW PO SCH (09:13)
[2022-08-21] MEDS: LOSARTAN POTASSIUM 25 MG TAB PO SCH (09:13)
[2022-08-21] MEDS: PANTOprazole 40 MG TAB PO SCH (09:13)
[2022-08-21] MEDS: FUROSEMIDE 40 MG TAB PO SCH (09:13)
--- NOTE | 2022-08-21 11:55 | Cardiology Consultation ---
Date of Consultation August 21, 2022 Assessment & Plan (1) Pericarditis: - Clinical symptoms of pleuritic chest pain and shortness of breath worse with deep inspiration and lying flat, EKG findings, mildly elevated inflammatory markers, and small circumferential pericardial effusion noted on CT and echocardiogram all consistent with pericarditis. Patient was noted to have a small pericardial effusion at the time of postoperative CT angiogram performed back in March. At this point, with having been over 4 months removed from his surgery, timing is not consistent with a postoperative pericardiotomy syndrome, however the patient does not have any other recent viral symptoms. -Repeat EKG in AM. -Agree with initiation of colchicine 0.6 mg twice daily, with plans to likely complete a 3-month tapering course of colchicine. Agree with current ibuprofen therapy 600 mg by mouth every 8 hours. Agree with Protonix for GI prophylaxis. (2) H/O aortic valve replacement: - Patient is more than 3 months removed from surgical aortic valve replacement with an On-X prosthesis. His INR goal is therefore 1.5-2. INR today 1.2. -In effort to reduce the risk of hemorrhagic conversion of his small pericardial effusion, I favor ongoing treatment with Coumadin rather than proceeding with a heparin bridge. Current outpatient dose is 5 mg of Coumadin every Friday, 10 mg other days a week and his is therefore due for 10 mg today. 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 History of Present Illness Attending Physician: Sapphire Caba MD History of Present Illness Mr Hollins is a 41 year old male seen in general cardiology consultation per the request of Dr Caba for the evaluation of chest pain and shortness of breath. Patient is known to the undersigned as I have seen him as an outpatient. He was initially seen by the undersigned in consultation in January, with findings of aortic root and ascending aorta enlargement on echocardiogram. A follow-up CT angiogram of the chest revealed severe aortic root enlargement at 5 cm, severe proximal ascending aorta enlargement at 5.4 cm in the setting of a trileaflet aortic valve with moderate aortic regurgitation. There was no definite family history of the aortic aneurysm however the patient had a family history of his father having suddenly of a presumed cardiac event at the age of 60. The patient has since undergone genetic testing and has been seen by the clinical genetics service within the [facility] and now carries the presumed diagnosis of Marfan syndrome with a pathogenic variant of the FBN1 gene. The patient therefore underwent aortic root and proximal ascending aorta replacement utilizing a 27 mm On-X valve conduit, 03/19/2022. Since his surgery he had developed palpitations were felt to be due to sensed supraventricular and ventricular ectopy with PAC burden of 4.9% on Zio patch monitor worn in April,. Patient notes recent onset of shortness of breath and a pleuritic chest discomfort with deep inspiration and worse with lying flat of 5 days duration. He was seen in the emergency department 7 05/09 and discharged. He presented again yesterday with initial EKG having been performed at 1556 on 08/20/2022 with findings of concave ST segment elevation most notable in the inferior leads. The patient was assessed by Dr. Fu of interventional cardiology, and on clinical assessment it was felt that his symptoms were characteristic of a pericarditis rather than angina. Emergent cardiac catheterization therefore was not performed. He has since been admitted to the telemetry unit and has received nonsteroidal inflammatory medication including a dose of Toradol and then oral ibuprofen, as well as colchicine. An echocardiogram has since been performed and reviewed by the undersigned revealing a small circumferential pericardial effusion. There is a slight sedimentation rate was minimally elevated at 30 mm/hr. C- reactive Protein. 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 Angiographically normal coronary arteries, 03[place]11[place]22[place] [facility] [place]ergies Allergy/AdvReac Type Severity Reaction Status Date / Time dog dander Allergy Unknown ON [facility] MED Verified 08/20/22 16:05 LIST Home Medications Medication Instructions Recorded Confirmed Type acetaminophen 500 mg tablet 500 mg PO Q6H PRN Pain 04/10/22 08/20/22 History aspirin 81 mg chewable tablet 81 mg PO QAM 04/10/22 08/20/22 History furosemide 40 mg tablet 40 mg PO QAM 04/10/22 08/20/22 History potassium chloride 20 mEq 20 meq PO QAM 04/10/22 08/20/22 History tablet,extended release(part/cryst) (Klor-Con M) warfarin 5 mg tablet 5 mg PO UD 04/10/22 08/20/22 History amoxicillin 500 mg capsule 2,000 mg PO DIRECTED PRN 1 HR 08/20/22 08/20/22 History PRIOR TO DENTAL PROCEDURES losartan 25 mg tablet 12.5 mg PO QAM 08/20/22 08/20/22 History metformin 500 mg tablet,extended 500 mg PO QAM 08/20/22 08/20/22 History release 24 hr metoprolol succinate 100 mg 100 mg PO BID 08/20/22 08/20/22 History tablet,extended release 24 hr Patient History Medical History (Updated 08/20/22 @ 20:50 by Janet Lucas MD) Diet-controlled type 2 diabetes mellitus GERD without esophagitis History of DVT (deep vein thrombosis) No pertinent family history Primary hypertension Surgical History (Updated 08/20/22 @ 20:36 by Janet Lucas MD) H/O aortic valve replacement with tissue graft Family History (Updated 08/20/22 @ 20:53 by Janet Lucas MD) Father Coronary heart disease [place] in 50s Mother , pancreatic cancer Diabetes Brother Coronary heart disease [place] age 47 Social History (Updated 08/20/22 @ 20:30 by Janet Lucas MD) Smoking Status: Never smoker Tobacco Type: Cigarettes Age Started Using Tobacco: 19; Age Quit Using Tobacco: 40; Cigarettes Per Day: Smoked intermittently, estimates 15 years.; Second Hand Exposure: No; Do You Dip or Chew Tobacco: No; Tobacco Cessation Education Requested by Patient: No Hx Alcohol Use: Yes Alcohol Intake Frequency: 2-4 x/Month Hx Substance Use: No Preferred Language: Frisian Communication Ability: Effective Stock Buyer Required: No Beliefs That Will Affect Care: None Current Living Situation: Family current occupational status: employed 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 Feels Safe at Home: Yes Safety Concerns: Feels Safe At This Time Assistive Devices: Oxygen - Continuous Review of Systems Review of Systems: All systems reviewed & are unremarkable except as noted in HPI & below Physical Exam Constitutional: + ill appearing; no acute distress Respiratory: normal respiratory effort, lungs clear to auscultation Cardiovascular: RRR, no murmur, no edema crisp prosthetic heart sounds noted Chest (Breasts): Additional Comments: Well-healed median sternotomy incision, well-healed chest tube incisions Gastrointestinal (Abdomen): normal bowel sounds, soft, nontender, no hepatosplenomegaly Neurologic: PERRL, EOMI, accommodation nl, no face palsy, no dysarthria Psychiatric: A+Ox3, euthymic affect Results & Data Vital Signs (Past 12 Hours) Vital Signs Temp Pulse Pulse Pulse Resp BP Pulse Ox 08/21/22 11:44 36.6 C 96 H 18 121/87 95 08/21/22 08:18 36.7 C 98 H 18 114/64 97 08/21/22 07:33 89 08/21/22 03:22 37.0 C 105 H 18 124/79 93 08/21/22 02:25 104 H 95 08/21/22 02:24 103 H O2 Del Method O2 Flow Rate 08/21/22 11:44 Room Air 08/21/22 08:18 Nasal Cannula 3 08/21/22 07:33 08/21/22 03:22 Nasal Cannula 3 08/21/22 02:25 Nasal Cannula 2 08/21/22 02:24 Laboratory Results Cardiac Enzymes 08/20/22 08/20/22 Range/Units 15:55 16:02 AST 18 (13-39) U/L Troponin I High Sens 4.2 (0-20) pg/ml B-Natriuretic Peptide 28 (0-100) pg/ml Coagulation 08/20/22 08/20/22 08/21/22 Range/Units 15:55 16:02 06:24 PT 14.3 H 13.5 H (9.0-12.0) Seconds APTT 31.0 (21.0-31.0) Seconds B-Natriuretic Peptide 28 (0-100) pg/ml CBC 08/20/22 Range/Units 16:02 WBC 9.89 (4.8-10.8) K/ul RBC 4.75 (4.70-6.10) M/uL Hgb 13.6 L (14.0-18.0) g/dl Hct 40.2 L (42.0-52.0) % Plt Count 218 (130-400) K/uL Neut # (Auto) 7.03 H (1.40-6.50) K/uL Lymph # (Auto) 1.88 (1.2-3.4) K/uL [place] # (Auto) 0.86 H (0.11-0.59) K/uL Eos # (Auto) 0.06 (0-0.50) K/uL Baso # (Auto) 0.03 (0-0.2) K/uL Comprehensive Metabolic Panel 08/20/22 08/21/22 Range/Units 16:02 06:24 Sodium 135 L 136 (136-145) mmol/L Potassium 4.1 4.2 (3.5-5.1) mmol/L Chloride 101 101 (98-107) mmol/L Carbon Dioxide 29 34 H (21-32) mmol/L BUN 11 11 (6-23) mg/dl Creatinine 0.89 0.86 (0.6-1.4) mg/dl Glucose 133 H 162 H (70-99(Fasting)) mg/dl Calcium 9.4 8.7 (8.6-10.3) mg/dl AST 18 (13-39) U/L ALT 21 (7-52) U/L Alkaline Phosphatase 54 (34-104) U/L Total Protein 7.0 (6.0-8.3) gm/dl Albumin 4.4 (3.4-5.0) gm/dl Intake and Output 08/20/22 08/21/22 08/21/22 22:59 06:59 14:59 Intake Total 100 / 100 240 / 240 Output Total 475 / 475 Balance -375 / -375 240 / 240 Intake: Oral 100 / 100 240 / 240 Output: Urine 475 / 475 Other: Weight 121 kg Weight Measurement Method Standing Scale Diagnostic Findings Genetic testing results: [facility] Connective Tissue Disorders panel- 03/12/2022 FBN1 (c.1494del; [id number])- 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
--- NOTE | 2022-08-21 12:16 | Hospitalist Progress Note ---
Date of Service August 21, 2022 Assessment & Plan (1) Chest pain: (2) Shortness of breath: (3) Pericarditis: Plan: 41 year old male with pmhx (per chart, reviewed with pt) of suspected Marfan's complicated by ascending aortic aneurysm/dilation and nonrheumatic AV in sufficiency s/p aortic root/ascending aorta replacement (27 mm On-X conduit) and mechanical aortic valve (on Warfarin) 03/19/2022, symptomatic PACs, history of DVT, HTN, COPD, GERD, Lumbar DDD and scoliosis who presented with worsening chest pain and SOB Patent coronary arteries on catheterization within the past 6 months Small pericardial effusion seen on CTA. No dissection/PE Reviewed EKGs since admission Trop I wnl 4.2, proBNP 28 ESR 30. CRP 5.3 Aortic valve replace is 6 months ago, hence, PPS is less likely Tick borne labs pending Continue ibuprofen, colchicine Discussed with Retail Pricing Coordinator TTE noted mild conc LVH, LV wall motion otherwise normal, EF 60-65%, mechanical AV, no significant prosthetic regurg, GII DD, mild aortic root dialation, trace circumferential pericardial effusion. No tamponade Continue monitoring on tele (4) H/O aortic valve replacement: Plan: Currently on warfarin INR subtherapeutic He stated he missed the dose of the day before admission but has been complian Per pt, he takes Warfarin 1 tab (5mg) on Friday, 2 tabs (10mg) every other day of the week Discussed with Cards. Will hold off hep gtt for now Continue warfarin. Monitor INR (5) GERD without esophagitis: Plan: No complaints at this time continue PPI while on NSAID therapy (6) History of DVT (deep vein thrombosis): Plan: Continue warfarin as above (7) Primary hypertension: Plan: Continue Furosemide 40 mg daily, Losartan 12.5 mg daily, and Metoprolol 100 mg po BID (8) Diet-controlled type 2 diabetes mellitus: Plan: Diabetic diet A1c 6.6 - 6.7 I spent a total of 50 minutes coordinating, documenting and providing care for this patient excluding time spent in performance of separately billed services Admission and Anticipated Discharge Date Admission Date: August 20, 2022 Subjective Patient seen and examined Reports persistent chest pain, left sided, worse with laying down, better with sitting up, associated with some shortness of breath Feels like he cannot take a deep breath Denies dizziness Denies fever, chills, nausea, sorethroat, congestion Reports occasional cough but not unusual Denied diarrhea, abdominal pain Denied dysuria, freq, urgency Denied sick contacts as far as he knows Physical Exam Constitutional: + well hydrated; no acute distress Eyes: PERRL, conjunctivae normal, anicteric sclerae ENMT: external ear and nose normal, oropharynx normal Respiratory: normal respiratory effort, lungs clear to auscultation Cardiovascular: Rate/Rhythm: regular rate and regular rhythm mechanical click Gastrointestinal (Abdomen): normal bowel sounds, soft, nontender, no hepatosplenomegaly Musculoskeletal: no cyanosis or clubbing, extremities motor strength 5/5 Neurologic: PERRL, EOMI, accommodation nl, no face palsy, no dysarthria Psychiatric: A+Ox3, euthymic affect Results & Data Results & Data Vital Signs (Past 12 Hours) Vital Signs Temp Pulse Pulse Pulse Resp BP Pulse Ox 08/21/22 11:44 36.6 C 96 H 18 121/87 95 08/21/22 08:18 36.7 C 98 H 18 114/64 97 08/21/22 07:33 89 08/21/22 03:22 37.0 C 105 H 18 124/79 93 08/21/22 02:25 104 H 95 08/21/22 02:24 103 H O2 Del Method O2 Flow Rate 08/21/22 11:44 Room Air 08/21/22 08:18 Nasal Cannula 3 08/21/22 07:33 08/21/22 03:22 Nasal Cannula 3 08/21/22 02:25 Nasal Cannula 2 08/21/22 02:24 Laboratory Results Abnormal lab results 08/20/22 08/20/22 08/20/22 Range/Units 16:02 16:02 16:02 Hgb 13.6 L (14.0-18.0) g/dl Hct 40.2 L (42.0-52.0) % Neut # (Auto) 7.03 H (1.40-6.50) K/uL [place] # (Auto) 0.86 H (0.11-0.59) K/uL ESR (0-15) mm/hr PT 14.3 H (9.0-12.0) Seconds INR 1.3 H (0.9-1.1) VBG pH (7.36-7.41) Sodium 135 L (136-145) mmol/L POC Chloride (101-112) mmol/L Carbon Dioxide (21-32) mmol/L Anion Gap (3-11) POC Anion Gap (16-25) mmol/L Glucose 133 H (70-99(Fasting)) mg/dl POC Glucose (other) (70-99) mg/dl POC Ioniz Calcium Melanie (1.12-1.32) mmol/l C-Reactive Protein 5.30 H (0-0.5) mg/dl 08/20/22 08/20/22 08/21/22 Range/Units 16:02 16:07 06:24 Hgb (14.0-18.0) g/dl Hct (42.0-52.0) % Neut # (Auto) (1.40-6.50) K/uL [place] # (Auto) (0.11-0.59) K/uL ESR (0-15) mm/hr PT 13.5 H (9.0-12.0) Seconds INR 1.2 H (0.9-1.1) VBG pH 7.46 H (7.36-7.41) Sodium (136-145) mmol/L POC Chloride 98 L (101-112) mmol/L Carbon Dioxide (21-32) mmol/L Anion Gap (3-11) POC Anion Gap 15.0 L (16-25) mmol/L Glucose (70-99(Fasting)) mg/dl POC Glucose (other) 132 H (70-99) mg/dl POC Ioniz Calcium Melanie 1.08 L (1.12-1.32) mmol/l C-Reactive Protein (0-0.5) mg/dl 08/21/22 08/21/22 Range/Units 06:24 06:24 Hgb (14.0-18.0) g/dl Hct (42.0-52.0) % Neut # (Auto) (1.40-6.50) K/uL [place] # (Auto) (0.11-0.59) K/uL ESR 30 H (0-15) mm/hr PT (9.0-12.0) Seconds INR (0.9-1.1) VBG pH (7.36-7.41) Sodium (136-145) mmol/L POC Chloride (101-112) mmol/L Carbon Dioxide 34 H (21-32) mmol/L Anion Gap 1 L (3-11) POC Anion Gap (16-25) mmol/L Glucose 162 H (70-99(Fasting)) mg/dl POC Glucose (other) (70-99) mg/dl POC Ioniz Calcium Melanie (1.12-1.32) mmol/l C-Reactive Protein (0-0.5) mg/dl (3) Pericarditis Chronicity: unspecified Pericarditis type: unspecified type Qualified Code(s): I31.9 - Disease of pericardium, unspecified
[2022-08-21] MEDS: WARFARIN SOD 10 MG TAB PO SCH (15:18)
[2022-08-21] MEDS ORDERED: MAGNESIUM SULFATE / D5W 1 GM/100 ML BAG IV ONE (21:55)
[2022-08-21] MEDS ORDERED: XOPENEX/ATROVENT 1.25mg/0.5MG NEB COMBO NEB STA (21:55)
[2022-08-21] MEDS ORDERED: LEVALBUTEROL 1.25 MG/3 ML NEB NEB STA (21:56)
[2022-08-21] MEDS ORDERED: IPRATROPIUM BROMIDE NEB SOLN 0.02% 2.5 ML VIAL INH STA (21:56)
[2022-08-22] MEDS: IBUPROFEN 600 MG TAB PO SCH ×2 (05:26→15:04)
[2022-08-22 07:46] LABS: Hematocrit (blood only) 37.5 % (42.0-52.0); Hemoglobin 12.5 g/dl (14.0-18.0); Mean Corpuscular Hgb Conc 33.3 g/dL (32.0-36.0); Mean Corpuscular Volume 84.1 fL (80.0-100.0); Mean Platelet Volume 11.3 fL (9.4-12.4); Platelet Count 224 K/uL (130-400); RDW Coefficient of Variation 13.7 % (11.5-14.5); RDW Standard Deviation 42.5 fL (36.4-46.3); Red Blood Count 4.46 M/uL (4.70-6.10)
[2022-08-22 07:53] LABS: BUN Creatinine Ratio 13.5 (10-20); Calcium 8.7 mg/dl (8.6-10.3); Creatinine Clr Calc Pharmacy 164.5 ml/min; Est GFR (African American) 131.9 ml/min; Est GFR (Non-African American) 113.8 ml/min; Phosphorus 2.4 mg/dl (2.5-4.9); Potassium 4.1 mmol/L (3.5-5.1)
[2022-08-22 08:06] LABS: INR 1.5 (0.9-1.1); Prothrombin Time 16.5 Seconds (9.0-12.0)
[2022-08-22] MEDS: COLCHICINE 0.6 MG TAB PO SCH (08:20)
[2022-08-22] MEDS: METOPROLOL SUCC 50MG EXT REL TAB PO SCH (08:20)
[2022-08-22] MEDS: PANTOprazole 40 MG TAB PO SCH (08:20)
[2022-08-22] MEDS: ASPIRIN 81 MG CHEW PO SCH (08:20)
[2022-08-22] MEDS: LOSARTAN POTASSIUM 25 MG TAB PO SCH (08:20)
[2022-08-22] MEDS: POTASSIUM CHLORIDE CRTAB 20 MEQ TABCR PO SCH (08:21)
--- NOTE | 2022-08-22 12:50 | Cardiology Progress Note ---
Date of Service August 22, 2022 Assessment & Plan (1) Pericarditis: Plan: -Stable for discharge on ibuprofen 600 mg every 8 hours x 1 week, 400 mg every 8 hours after x 1 week, 200 mg Q 8 hours x 1 week and weaned as tolerated. -Colchicine 0.6 mg BID, to be reduced to daily at follow up visit to complete 3 month course. Protonix 40 mg daily. --Will need cardiology follow up visit in 1-2 weeks- appointment requested. (2) H/O aortic valve replacement: Plan: INR 1.5 , Goal for On-X valve 1.5 -2. Continue current dose of coumadin. Continue ASA 81 mg for stroke prevention. (3) Primary hypertension: Plan: Continue metoprolol, losartan, furosemide, losartan, KCL-LICENSED ESTHETICIAN doses. Admission and Anticipated Discharge Date Admission Date: August 20, 2022 Subjective Patient seen in cardiology consultations. States he feels "50% better" with improvement in chest pain and shortness of breath. Telemetry reveals SR with rates on 90s to 100 bpm. Physical Exam Constitutional: WD/WN, vitals as above Respiratory: normal respiratory effort, lungs clear to auscultation Cardiovascular: RRR, no murmur, no edema normal prosthetic valve sounds Gastrointestinal (Abdomen): normal bowel sounds, soft, nontender, no hepatosplenomegaly Neurologic: PERRL, EOMI, accommodation nl, no face palsy, no dysarthria Results & Data Vital Signs (Past 12 Hours) Vital Signs Temp Pulse Pulse Resp BP Pulse Ox O2 Del Method 08/22/22 11:42 36.5 C 84 18 136/93 94 Room Air 08/22/22 08:54 Room Air 08/22/22 07:20 37.0 C 100 H 18 126/82 91 Room Air 08/22/22 07:14 109 H 08/22/22 02:59 37.1 C 98 H 16 117/68 92 Room Air Laboratory Results INR 1.5 Diagnostic Findings EKG 08/22: Sinus tachycardia at [address] bpm. Improvement in the ST elevation / pericarditis findings (1) Pericarditis Chronicity: unspecified Pericarditis type: unspecified type Qualified Code(s): I31.9 - Disease of pericardium, unspecified
--- NOTE | 2022-08-22 14:18 | Discharge Summary ---
Date of Service August 22, 2022 Admission HPI Per Admitting Provider Mr. Hollins is a 41 year old male with pmhx (per chart, reviewed with pt) of suspected Marfan's complicated by ascending aortic aneurysm/dilation and nonrheumatic AV insufficiency s/p aortic root/ascending aorta replacement (27 mm On-X conduit) and mechanical aortic valve (on Warfarin) 03/19/2022, symptomatic PACs, history of DVT, HTN, COPD, GERD, Lumbar DDD, and scoliosis. He presented with worsening chest pain and sob. He is found to have pericarditis. Mr. Hollins reports he has mild chronic chest discomfort and sensation that he can't get a good deep breath since surgery (noted above). Friday this became much worse than baseline. He felt as though he had just woken from surgery and couldn't get a good breath. This was associated with chest pain that is exacerbated by lying flat, lying on the side, and deep inspiration. Pain is not affected by activity. It is alleviated with medication given here and with sitting upright. He becomes fatigued and severely short of breath with minimal activity such as walking from the front door to the car. This is associated with orthopnea, paroxysmal nocturnal dyspnea, lightheadedness, sensation of chest congestion and a dry cough. He does not spend much time outdoors and is unaware of any insect bites or rash. He further denies f/c/n/v, sweats, nasal or sinus congestion, rhinorrhea, sore throat, post nasal drip, diarrhea, or dysuria. He had some pain across the upper abdomen that resolved with morphine. He presented 08/19 due to symptoms above. CTA at that time revealed a small pericardial effusion. It was neg for PE or dissection. Mutliple stable pulmonary nodules were noted. Trop was wnl and he was sent home. He did not feel any better when he got home. 08/20 symptoms worsened prompting him to return to the ED. ED course: VS: HR 100s, RR 20s, otherwise VSS, afebrile, saturating well ORA b/w: notable for normal BNP (28), and Trop I (4.2). CRP is elevated at 5.30. CBC and CMP are unimpressive/wnl. TSH, Mg, lipase all wnl [place] serology is pending. INR is subtherapeutic (1.3). Pt reports missing dose yesterday. CXR: unchanged from yesterday. UA neg for bacteria Bedside echo with small pericardial effusion, no tamponade. Given Ketorolac and morphine, admitted to hospitalist service. Of note pt states he does not have DM. He has metformin in case he needs it, he checks his glucose level regularly, and to this point has never actually needed the metformin. He also denies dx of HLP (no dx of HLP in EMR Link). Per OP records A1c has consistently been 6.6-6.7 indicating diet controlled NIDDM-II. OP records also note COPD Admission Exam Per Admitting Provider General:NAD, well nourished, non-toxic appearing Head:NC AT Eyes: anicteric sclera, no conjunctival injection Nose:nares patent Mouth:MMM Neck:supple, trachea midline CV:RRR S1 S2. + rub Pulm:CTA b/l Abd/GI:+ BS, soft, NT, ND, no guarding :no britt Ext:no pretibial edema, peripheral pulses intact MSK:normal bulk and tone Neuro:alert, moving all 4 extremities symmetrically, no focal deficits. Psych:pleasant mood and affect Skin:Longitudinal midline chest scar from cardiac surgery is well healed. Visible skin is warm, dry, and without rash. Pt not fully undressed for exam. Principal Diagnosis Acute pericarditis Discharge Exam Constitutional + well hydrated; no acute distress Eyes PERRL, conjunctivae normal, anicteric sclerae ENMT external ear and nose normal, oropharynx normal Respiratory normal respiratory effort, lungs clear to auscultation Cardiovascular Rate/Rhythm: regular rate and regular rhythm S1 S2. Mechanical clicks Gastrointestinal (Abdomen) normal bowel sounds, soft, nontender, no hepatosplenomegaly Musculoskeletal no cyanosis or clubbing, extremities motor strength 5/5 Neurologic PERRL, EOMI, accommodation nl, no face palsy, no dysarthria Psychiatric A+Ox3, euthymic affect Discharge Data Allergies Allergy/AdvReac Type Severity Reaction Status Date / Time dog dander Allergy Unknown ON GMG MED Verified 08/20/22 16:05 LIST Consultations 08/20/22 16:54 ED Decision to Admit Stat 08/21/22 10:04 Consult Cardiology Routine Procedures Performed Operation Date: 08/20/22 16:30 <No data on this case meets the specified criteria> Ordered Studies 08/20/22 16:16 CL Cath Imgs for PACS use only Stat Hospital Course (1) Chest pain: (2) Shortness of breath: (3) Pericarditis: 41 year old male with pmhx (per chart, reviewed with pt) of suspected Marfan's complicated by ascending aortic aneurysm/dilation and nonrheumatic AV insufficiency s/p aortic root/ascending aorta replacement (27 mm On-X conduit) and mechanical aortic valve (on Warfarin) 03/19/2022, symptomatic PACs, history of DVT, HTN, COPD, GERD, Lumbar DDD and scoliosis who presented with worsening chest pain and SOB Patent coronary arteries on catheterization within the past 6 months Small pericardial effusion seen on CTA. No dissection/PE Trop I within normal 4.2, proBNP 28 Elevated inflammatory markers: ESR 30. CRP 5.3 Aortic valve replace is 6 months ago, hence, PPS is less likely Tick borne labs pending He was started on ibuprofen and colchicine He was evaluated by Cardiology TTE noted mild conc LVH, LV wall motion otherwise normal, EF 60-65%, mechanical AV, no significant prosthetic regurg, GII DD, mild aortic root dialation, trace circumferential pericardial effusion. No tamponade Patient reports significant improvement today Reports mild chest pain today and no longer short of breath Cardiology recommend discharge on Colchicine 0.6mg bid and Ibuprofen 600mg every 8hours for 1 week, then 400mg every 8 hours for 1 week, then 200mg every 8 hours for 1 week. Subsequent doses will be weaned as needed by Bank Vault Attendant. Discharged on pantoprazole daily while on these (4) H/O aortic valve replacement: Currently on warfarin INR subtherapeutic at 1.2 on admission. 1.5 today He stated he missed the dose of the day before admission but has been compliant Per pt, he takes Warfarin 1 tab (5mg) on Friday, 2 tabs (10mg) every other day of the week (5) GERD without esophagitis: No complaints at this time Continue PPI while on NSAID therapy as above (6) History of DVT (deep vein thrombosis): Continue warfarin as above (7) Primary hypertension: Continue Furosemide 40 mg daily, Losartan 12.5 mg daily, and Metoprolol 100 mg po BID (8) Diet-controlled type 2 diabetes mellitus: Diabetic diet A1c 6.6 - 6.7 Total Time Total Time Spent Total Time Spent (In Minutes): 40 Total Time Includes: Examination of the Patient, Discharge Planning, Medication Reconciliation and Communication With Other Providers Discharge Plan Discharge Items Patient Disposition: Home - Self-Care Reason For Visit: CHEST PAIN WITH DYSPNEA Discharge Diagnosis: Acute pericarditis Activity: Resume your previous activity Non-emergency contact: Primary Care Provider and Bank Vault Attendant Call non-emergency contact if: you have any medication questions and your symptoms worsen Follow-up/Referrals: Nabeel Connors DO [Bank Vault Attendant] - (Date & Time 09/04/2022 11:00 AM Provider Nabeel Connors DO Department Cardiology, [facility] ) Damari Mascorro PA-C [Primary Care Provider] - (Date & Time 08/27/2022 3:20 PM Provider Damari Mascorro PA-C Department [facility] ) Diet: Carb Consistent or DM2 and Heart Healthy Addtl Attending Provider Instructions: Mr Hollins. You came to the hospital with chest pain and shortness of breath. You were evaluated and found to have Pericarditis. You were started on medications and symptoms are improving. Please take colchicine 0.6mg twice a day. You will be on this medication for about 3 months. Dosage may be adjusted on your follow up visit with Cardiology office. Please take Ibuprofen 600mg every 8hours for 1 week, then 400mg every 8 hours for 1 week, then 200mg every 8 hours for 1 week. Subsequent doses will be weaned as needed by Bank Vault Attendant. Please take pantoprazole 40mg daily while on these meds. Please continue your other home medications. It was a pleasure taking care of you. Pending Studies at Discharge: Yes (Tick borne labs) Stand-Alone Forms: My [employer], Work/School Release, Smoking Cessation Medications and DC Order Prescriptions: New ibuprofen 200 mg tablet See Rx Instructions .ROUTE .COMPLEX Qty: 126 0RF Rx Instructions: Take 600mg every 8 hours x 1 week, then 400mg every 8hours x 1 week, then 200mg every 8 hours x 1 week pantoprazole 40 mg Tablet,Delayed Release (Dr/Ec) 40 mg PO QAM 30 Days Qty: 30 0RF colchicine [Colcrys] 0.6 mg Tablet 0.6 mg PO BID Qty: 60 0RF Continued amoxicillin 500 mg Capsule 2,000 mg PO DIRECTED PRN (Reason: 1 HR PRIOR TO DENTAL PROCEDURES) metoprolol succinate 100 mg tablet extended release 24 hr 100 mg PO BID losartan 25 mg tablet 12.5 mg PO QAM metformin 500 mg tablet extended release 24 hr 500 mg PO QAM furosemide 40 mg tablet 40 mg PO QAM warfarin 5 mg tablet 5 mg PO UD potassium chloride [Klor-Con M20] 20 mEq tablet,ER particles/crystals 20 meq PO QAM aspirin 81 mg tablet,chewable 81 mg PO QAM acetaminophen 500 mg Tablet 500 mg PO Q6H PRN (Reason: Pain) Discharge Orders: Discharge Order (Routine); Ordered 08/22/22 Ordered By: Sapphire Caba Admission Data Admit Date/Time: 08/20/22 18:52 Attending Provider: Sapphire Caba I. Admit Provider: Janet Lucas Primary Care Provider: Damari Mascorro Other Providers: Janet Lucas ; Nabeel Connors Other Interventions: Discharge Summary Assessment (RN) Last Done: 08/22/22 14:17
[2022-08-22] MEDS: WARFARIN SOD 10 MG TAB PO SCH (15:04)
--- NOTE | 2022-08-23 05:38 | Electrocardiogram Report ---
Test Reason : Blood Pressure : / mmHG Vent. Rate : 112 BPM Atrial Rate : 112 BPM P-R Int : 158 ms QRS Dur : 088 ms QT Int : 316 ms P-R-T Axes : 064 098 069 degrees QTc Int : 431 ms Sinus tachycardia Possible Left atrial enlargement Rightward axis ST elevation consider inferior injury or acute infarct ACUTE VA / STEMI Abnormal ECG When compared with ECG of 19-AUG-2022 01:13, ST more elevated in Inferior leads Confirmed by J Luis Mead ([id number]) on 08/23/2022 5:38:30 AM Referred By: REFERRED SELF Confirmed By:J Luis Mead
--- NOTE | 2022-08-23 05:40 | Electrocardiogram Report ---
Test Reason : Blood Pressure : / mmHG Vent. Rate : 106 BPM Atrial Rate : 106 BPM P-R Int : 158 ms QRS Dur : 086 ms QT Int : 330 ms P-R-T Axes : 046 083 058 degrees QTc Int : 438 ms Sinus tachycardia Possible Left atrial enlargement ST elevation consider inferior injury or acute infarct Abnormal ECG When compared with ECG of 20-AUG-2022 15:56, No significant change was found Confirmed by J Luis Mead ([id number]) on 08/23/2022 5:40:39 AM Referred By: REFERRED SELF Confirmed By:J Luis Mead
[2022-08-23 14:17] LABS: Babesia microti DNA Not Detected (Not Detected)
--- NOTE | 2022-08-24 05:53 | Electrocardiogram Report ---
Test Reason : Blood Pressure : / mmHG Vent. Rate : 101 BPM Atrial Rate : 101 BPM P-R Int : 172 ms QRS Dur : 086 ms QT Int : 322 ms P-R-T Axes : 060 077 053 degrees QTc Int : [address] elevation, consider pericarditis Abnormal ECG When compared with ECG of 20-AUG-2022 16:23, No significant change was found Confirmed by J Luis Mead ([id number]) on 08/24/2022 5:53:07 AM Referred By: REFERRED SELF Confirmed By:J Luis Mead
[2022-08-26] MEDS ORDERED: WARFARIN SOD 5 MG TAB PO SCH (16:00)
== END 2022-08-22 16:09 | disposition home or self-care (01) | DRG 315 ==
LOC: ED 15:08 → CC 16:44 → 2W 18:52 → SUATTDRO 18:52 → 2W 20:56